=== PATIENT | male | born 1995 | race Caucasian/White ===

== ENCOUNTER → 2018-02-23 | Outpatient (CLI) | payer BC, OTHER ==
[2018-02-26 00:07] LABS: HERPES ZOSTER, VARICELLA IgM <0.91 index (0.00-0.90)
[2018-02-26 00:07] LABS: HERPES ZOSTER, VARICELLA IgG <135 index (Immune >165)
== END ==
LOC: M WUC 17:02
DX: Z00.00 Encounter for general adult medical examination without abnormal findings (principal)
CPT/HCPCS: 86787